=== PATIENT | female | born 1960 | race Caucasian/White ===

== ENCOUNTER 2020-11-22 09:00 | Outpatient (RCR) | payer MEDICAID, SELFPAY ==
--- NOTE | 2020-10-24 09:56 | HP.PTEVAL_ITS ---
Patient's Visit Information RONALD CABALLERO is a 60 year old F referred to Physical Therapy by Dr. Rajeev Arango MD with a diagnosis of L LE weakness. Date of Evaluation: 10/24/20 Physical Therapist: Omar Gibbs, PT, ATC - Visit Plan Frequency: 2-3x /Week Duration: 4-6 Weeks Plan: L LE strengthening, core stab ex's, B LE stretching, balance and proprio, nustep, and HEP - Subjective Pt reports she has had L leg pain and weakness for 4 years. Pt notes she fell in the shower at that time and experienced a sensation in her L hamstring region. Pt reports the pain progressively worsened after that, to the point where she now has trouble with lifting her L LE, and has foot drop. Pt reports she has had MRI's of her L/S, neck, and head and notes there were no other findings other than arthritis throughout. Pt reports she had twins a long time ago and notes she had similar sx's where her L LE would give out. Pt reports her L LE has buckled on her a couple times, but she has caught herself. Pt notes she has fallen in the past, but this was due to her having foot drop and catching her toes. Pt reports stair negotiation is really hard secondary to weakness. 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 Pt reports prolonged standing and walking both increase her pain. 0/10 pain at rest, 10/10 pain at worst (when her back spasms) - Pain L LE Pain Intensity (Out of 10): 0 Pain Intensity Range: 10 - Objective Neuro: L L3 and S1 regions are hyposensitive to light touch. B patellar reflex= 2/3. Palpation: Minor pain over L greater trocanter. No obvious deformity. MMT: R LE is grosslyly 5/5 throughout. L hip flex= 3/5, abd/add= 5/5, Knee flex/ext 4-/5, L ankle DF= 3-/5. ROM: L/S is WFL limits with all ROM. Pepeated movements. CATA and RFIS 10x2 ea had NE. - Goals Goal 1:: Increase L LE strength x 1 grade to aid with stair negotiation Goal Time Frame: 4-6 Weeks Goal 2:: Increase core stability x 1 grade to aid with IADL's Goal Time Frame: 4-6 Weeks Goal 3:: Pt will be able to ambulate greater than 600 feet in order to aid with community ambulation Goal Time Frame: 4-6 Weeks Goal 4:: I with HEP Goal Time Frame: 4-6 Weeks - Rehabilitation Potential Physical Therapy Diagnosis: L LE weakness, difficulty with ambulation, and intermittent LBP secondary to degenerative changes in L/S and core weakness Rehabilitation Potential: Good - Anticipated Interventions Patient/Client Instruction: Educate patient on: Condition, Plan of Care For the Purpose of:: To improve self management Therapeutic Exercise to Include: Strength training, Endurance training, Balance training, Body mechanics, Postural training, Flexibilty training, Dynamic Lumbar Stabilization For the Purpose of:: To decrease pain, To improve muscle performance and motor function, To improve ability of physical actions for home/community/work/leisure Thank you for the opportunity to evaluate your patient. For Medicare and Medicare HMO plans, please review the plan of care and approve it. It will need to be FAXED BACK to us at [phone] for Medicare purposes. For Medicare only, by signing this I certify the plan of care. Please let me know if there are questions or concerns regarding this plan of care. Physician Signature: Date:
--- NOTE | 2020-11-22 09:59 | HP.PTDCSUM ---
It has been my pleasure to treat RONALD CABALLERO referred by Dr. Rajeev Arango MD, with the diagnosis of L LE weakness for a total of 10 visit(s). Discharge Date: Please see the following information for a summary of their discharge status. Subjective: I feel so much better, but my foot drop is still there L LE Pain Intensity (Out of 10): 0 L hip Pain Intensity (Out of 10): 0 % Improvement: 80 Objective/Function: L LE strength now 5/5 with exception to hip flex and ankle DF= 4/5. Pt was able to ambulate over 1000 feet without difficulty. Core is much stronger. Pt is I with HEP. Rx goals achieved Goal 1:: Increase L LE strength x 1 grade to aid with stair negotiation Goal Progress: Goal Met Goal 2:: Increase core stability x 1 grade to aid with IADL's Goal Progress: Goal Met Goal 3:: Pt will be able to ambulate greater than 600 feet in order to aid with community ambulation Goal Progress: Goal Met Goal 4:: I with HEP Goal Progress: Goal Met Plan: Discharge If there are questions or concerns regarding this patient's physical therapy, please feel free to call me at [phone]. Thank you for the referral of this patient. Sincerely, Omar Gibbs, PT, ATC
== END 2020-11-22 19:00 | disposition home or self-care (01) ==
LOC: PT 09:00
PROVIDERS: PCP Family Medicine; Referring Provider Psychiatry & Neurology Neurology; Visit Provider Psychiatry & Neurology Neurology
DX: R29.898 Other symptoms and signs involving the musculoskeletal system (principal); M54.9 Dorsalgia, unspecified
CPT/HCPCS: 97110; 97161; 97164

== ENCOUNTER 2021-01-17 09:54 | Emergency (ER) | payer MEDICAID, SELFPAY ==
[2021-01-17 09:54] VITALS: BP 112/68; PULSE 76; RESP 18; TEMP 36.6; O2SAT 97; BMI 35.6
--- NOTE | 2021-01-17 10:09 | ED.DCSUM_ITS ---
History of Present Illness Chief Complaint: Nausea/Vomiting Informant: Patient Onset: Days Context: Gradual Onset Current Severity: Moderate Maximum Severity: Moderate Narrative: Patient presents secondary to nausea and vomiting. She states she was ill with upper respiratory symptoms and ear pain the first of the month. She was treated with an antibiotic. About a week and a half ago she developed nausea and vomiting, initially only vomiting once every 3 days or so. Episodes become more frequent but now she has vomiting daily. She was prescribed Zofran on the but she states this is not helping her. She denies any significant abdominal pain. No fever. She did start having diarrhea this morning. She denies blood in her vomitus or stool. - Past Medical History (1) Depression Status: Chronic Past Medical History - Allergies and Home Meds Allergies/Adverse Reactions: Allergies metronidazole [From Flagyl] Allergy (Verified 01/17/21 09:58) Vomiting NSAIDS (Non-Steroidal Anti-Inflamma Allergy (Verified 01/17/21 09:58) Nausea Primary Care Physician: Danny Wright MD [Primary Care Provider] - Prior records reviewed: Yes Smoking Status: Light Smoker (<10/day) Review of Systems General: Denies: Chills, Fever Eyes: Denies: Visual changes - bilaterally ENT: Denies: Bilateral ear pain, Rhinorrhea Cardiovascular: Denies: Chest pain Respiratory: Denies: Dyspnea, Cough Gastrointestinal: Reports: Nausea, Vomiting, Diarrhea. Denies: Abdominal pain Genitourinary: Denies: Dysuria Musculoskeletal: Denies: Swelling, Extremity Pain Skin: Denies: Rash Neurological: Denies: Headache Hematologic: Denies: Easy bruising, Easy bleeding Allergy: Denies: Uticaria Physical Exam Vital Signs/Narrative: Vital Signs Temp Pulse Resp BP Pulse Ox 01/17/21 09:54 97.9 F 76 18 112/68 97 Inital Vital Signs reviewed: Yes General: Well nourished, Well developed ENT: Moist mucous membranes Neck: Supple Cardiovascular: Regular rate, Regular rhythm Respiratory: No distress, CTA bilaterally Abdomen: Soft, Nontender, Hypoactive bowel sounds Extremities: Nontender Skin: Normal color Neurological: Alert, Oriented x3 Psychological: Normal affect Diagnostic/Tx/Re-eval Laboratory Results 01/17/21 01/17/21 10:15 10:15 WBC 11.6 H RBC 4.38 Hgb 13.7 Hct 42.0 MCV 95.9 MCH 31.3 MCHC 32.6 RDW Std Deviation 43.8 RDW Coeff of Júnior 12.3 Plt Count 326 MPV 10.0 Immature Gran % (Auto) 0.400 Neut % (Auto) 75.7 H Lymph % (Auto) 13.1 L [place] % (Auto) 9.5 Eos % (Auto) 1.0 Baso % (Auto) 0.3 Absolute Neuts (auto) 8.8 H Absolute Lymphs (auto) 1.52 Nucleated RBC % 0 Sodium 137 Potassium 3.8 Chloride 102 Carbon Dioxide 29.0 Anion Gap 6 BUN 11 Creatinine 1.00 Estim Creat Clear Calc 58.91 Est GFR (MDRD) Af Amer 73 Est GFR (MDRD) Non-Af 61 BUN/Creatinine Ratio 11.0 Glucose 109 H Calcium 8.9 Total Bilirubin 2.50 H Direct Bilirubin 0.50 H AST 20 ALT 57 H Alkaline Phosphatase 109 Total Protein 7.9 Albumin 3.7 Globulin 4.2 Lipase 77 - Medical Decision Making Patient has been on Zofran without improvement of her symptoms. She was given Reglan and Benadryl along with a liter of IV fluids. On repeat evaluation she does feel improved. Blood work is largely unremarkable. With no fever and a benign abdominal exam I do not think CT scan is needed at this time. This was discussed with the patient. She was given return instructions but will be given Reglan to try at home for her symptoms. She will continue to follow bland diet and take probiotic. ED Disposition - Plan for ED Patient: Disposition: Home or Assisted Living Diagnosis: Vomiting Instructions: ED Vomiting (Adult) Prescriptions: Metoclopramide [Reglan] 10 mg PO 4X/DAY PRN #20 tablet PRN Reason: Nausea/Emesis Transmission Status: Pending to [id number] Referrals: Danny Wright MD [Primary Care Provider] - 3-5 Days if not improving
[2021-01-17] MEDS: 0.9% Normal Saline 1,000 ML 1000 ML IV (10:22)
[2021-01-17] MEDS: DiphenhydrAMINE 50 MG/ML Syringe 12.5 MG IV (10:22)
[2021-01-17 10:23] LABS: Absolute Lymphocyte Count 1.52 X10^3/uL (0.83-4.51); Absolute Neutrophil Count 8.8 X10^3/uL (2.0-7.7); Basophil# 0.04 X10^3/uL; Basophil% 0.3 % (0-1); Eosinophil# 0.12 X10^3/uL; Hemoglobin 13.7 g/dL (12.0-15.0); Lymphocyte # 1.52 X10^3/ul (0.83-4.51); Lymphocyte % 13.1 % (19-41); Mean Corp Hgb Conc 32.6 g/dL (32-36); Mean Corpuscular Hgb 31.3 pg (27.0-32.0); Mean Corpuscular Volume 95.9 fL (81-99); Monocyte# 1.11 X10^3/uL; Monocyte% 9.5 % (0-10); NRBC Flagged by Analyzer 0 % (0-5); Neutrophil # 8.79 X10^3/uL (2.7-7.7); Neutrophil % 75.7 % (47-70); Platelet Count 326 K/mm3 (150-450); RBC Distribution Width CV 12.3 % (11.6-14.6); RBC Distribution Width SD 43.8 fl (35.1-43.9); Red Blood Count 4.38 M/mm3 (4.2-5.4); White Blood Count 11.6 K/mm3 (4.4-11.0)
[2021-01-17] MEDS: Metoclopramide 10 MG/2 ML Vial IV (10:24)
[2021-01-17 10:38] LABS: AST(SGOT) 20 U/L (15-37); Alanine Aminotransfer ALT/SGPT 57 U/L (13-56); Albumin, Serum 3.7 g/dL (3.2-5.0); Alkaline Phosphatase 109 U/L (45-117); Anion Gap 6 (5-15); BUN 11 mg/dL (7-18); Calcium,Total 8.9 mg/dL (8.5-10.1); Chloride 102 mmol/L (98-107); EST Glomerular Filtration Rate 61 mL/min (>60); Est Glom Filt Rate - Afr Amer 73 mL/min (>60); Estimated Creatinine Clearance 58.91 ml/min; Globulin 4.2 g/dL (2.2-4.2); Glucose 109 mg/dL (74-106); Lipase 77 U/L (73-393); Potassium 3.8 mmol/L (3.5-5.1); Protein, Total 7.9 g/dL (6.4-8.2); Sodium Level 137 mmol/L (136-145)
[2021-01-17 12:42] VITALS: BP 145/72; PULSE 76; RESP 16; O2SAT 95
== END 2021-01-17 12:43 | disposition home or self-care (01) ==
PROVIDERS: Emergency Provider Emergency Medicine; PCP Family Medicine
DX: R11.2 Nausea with vomiting, unspecified (principal); R19.7 Diarrhea, unspecified; F32.9 Major depressive disorder, single episode, unspecified; Z79.899 Other long term (current) drug therapy; F17.200 Nicotine dependence, unspecified, uncomplicated
CPT/HCPCS: 80048; 80076; 83690; 85025; 96361; 96374; 96375; 99283; J7030

== ENCOUNTER 2022-09-12 09:30 | Outpatient (RCR) | payer MEDICAID, SELFPAY ==
--- NOTE | 2022-07-08 12:20 | HP.PTEVAL_ITS ---
Patient's Visit Information COMFORT CABALLERO is a 62 year old F referred to Physical Therapy by ELISHA Tipton with a diagnosis of MULTIPLE SCLEROSIS. Date of Evaluation: 07/08/22 Physical Therapist: Comfort Thomas, PT, Cert MDT - Visit Plan Frequency: 2-3x /Week Duration: 2 Months Plan: *RIGHT UE INJURY FROM REMOTE FALL*. GAIT AND BALANCE TRAINING INCLUDING STAIRS. GAIT AND BALANCE SAFETY TRAINING WITH WORK RELATED DUTIES. TRENT LE STRENGTHEING. LEFT ANKLE ROM. GAIT TRAINING WITH NEW AFO WHEN ABLE TO GET IT. - Subjective Disability: NO. SELF EMPLOYEED - CLEANING. HASN'T WORKED SINCE LAST MONTH BECAUSE CAN'T CARRY HER STUFF UP AND DOWN THE STEPS. Present symptoms: LEFT FOOT DROP. WOBBLY. Present since: L FOOT DROP HAS GOT WORSE IN THE LAST 4 MONTHS. WORSE SOME DAYS THAN OTHERS. Pain Scale: THE ONLY PAIN I HAVE IS L HIP PAIN - INTERMITTENT PAIN. NEAR CONSTANT L HIP STIFFNESS. WORSE 10/10 - INTERMITTENT. Currently: 0/10. Commenced as a result of: PATIENT RELATES HER L HIP PAIN TO HER GAIT FROM THE MS AND HER FOOT DROP TO THE MS. Worse: WALKING. Better: SITTING. Previous history/Previous treatment: DX'S WITH MS APR 2022 BUT HAS BEEN DEALING WITH L LEG WEAKNESS FOR ABOUT 6 YEARS. Coughing/sneezing/straining: POSITIVE - IT MAKES MY TOES CURL - LEFT ONLY. Gait: PATIENT REPORTS SHE WALKS VERY SLOW TO TRY TO AVOID TRIPPING OVER LEFT TOES. NO AD'S. USES HANDRAILS ON STEPS. Bowel or Bladder Dysfunction: NO. Accidents: [place] [employer] 2016 - THIS IS WHEN L LEG WEAKNESS WAS NOTICED AND L LEG IS WHAT CAUSED THE FALL. HAS FALLEN QUITE A FEW TIMES SINCE THEN. INJURED RIGHT ELBOW IN A FALL AND CAN'T STRAIGHTEN IT ALL THE WAY OUT NOW. NO RECENT MAJOR FALLS THOUGH. Unexplained weight loss: NO. Imaging: RECENT SPINAL TAP. RECENT BRAIN AND NEXK MRI'S TOO. PMH/Recent major surgery: UNREMA RKABLE. OTHER: PATIENT REPORTS SHE HAS AN ORDER FOR AN AFO. THIS PT ENCOURAGED HER TO ASK HER INSURANCE COMPANY ABOUT COVERAGE BEFORE PURCHASING/HAVING IT MADE. - Objective Sitting/Standing Posture: POOR. FH. RSH'S. NO LUMBAR LATERAL SHIFT. Other Observations: PATIENT IS ABLE TO TRANSFER INDEP'LY FROM SIT TO STAND WITHOUT UE ASSIST. INDEP GAIT INTO PT WITH DECREASED CADANCE LIMPING ON LEFT LE. ROM deficit: TRENT LE'S WFL EXCEPT L ANKLE DORSIFLEXION DECREASED BY APPROX 75%. Motor deficit: RIGHT LE 5/5. LEFT LE: HIP 3-/5, KNEE 4-/5, ANKLE 2-/5. OTHER: SEE TUG AND 30 SEC STS TESTS BELOW. Core strength: POOR. OTHER: PATIENT IS VERY PLEASANT AND COOPERATIVE TO WORK WITH BUT TEARFUL OFF AND ON DURING SESSION THAT SHE RELATES TO HER DIAGNOSIS. - Balance/Special Test Scores Lower Extremity Functional Score: 33 TUG Test Time Seconds: 15.94 30 Second Chair Rise Test Seconds: 8 - Goals Goal 1:: INDEP AND SAFE GAIT ON LEVEL SURFACES AND UP AND DOWN STEPS WITH LEAST ASSISTIVE DEVICE. Goal Time Frame: 6-8 Weeks Goal 2:: PATIENT WILL COMPLETE 15 STANDS IN 30 SECS TO DEMONSTRATE IMPROVED FUNCTIONAL STRENGTH Goal Time Frame: 4-6 Weeks Goal 3:: PATIENT WILL COMPLETE TUG IN < 10 SECS TO DEMONSTRATE IMPROVED GAIT STABILITY Goal Time Frame: 6-8 Weeks Goal 4:: PATIENT WILL BE INDEP WITH A HEP FOR CONTINUED IMPROVEMENT ONCE FORMAL PHYSICAL THERAPY CONCLUDES. Goal Time Frame: 6-8 Weeks - Anticipated Interventions Patient/Client Instruction: Educate patient on: Condition, Plan of Care, Risk Factors For the Purpose of:: To improve self management Therapeutic Exercise to Include: Strength training, Flexibilty training, Gait and locomotor training, Neuromotor development, In an aquatic setting, Dynamic Lumbar Stabilization For the Purpose of:: To improve muscle performance and motor function, To improve ability to perform ADL's, To improve ability of physical actions for home/community/work/leisure, To improve gait and locomotor functions, To decrease soft tissue restriction Thank you for the opportunity to evaluate your patient. For Medicare and Medicare HMO plans, please review the plan of care and approve it. It will need to be FAXED BACK to us at [phone] for Medicare purposes. For Medicare only, by signing this I certify the plan of care. Please let me know if there are questions or concerns regarding this plan of care. Physician Signature: Date:
--- NOTE | 2022-12-26 14:41 | HP.PT.NRP ---
COMFORT CABALLERO was seen in my office for initial evaluation on 07/08/22. The following Plan of Care was established for this patient: Initial Frequency: 2-3x /Week Initial Duration: 2 Months Patient/Client Instruction: Educate patient on: Condition, Plan of Care, Risk Factors For the Purpose of:: To improve self management Therapeutic Exercise to Include: Strength training, Flexibilty training, Gait and locomotor training, Neuromotor development, In an aquatic setting, Dynamic Lumbar Stabilization For the Purpose of:: To improve muscle performance and motor function, To improve ability to perform ADL's, To improve ability of physical actions for home/community/work/leisure, To improve gait and locomotor functions, To decrease soft tissue restriction This patient was last seen in our office 09/12/22. Pertinent comments regarding their Physical therapy will appear below: PATIENT WAS SEEN TODAY FOR RE-ASSESSMENT OF PROGRESS TOWARD THE SET PT GOALS AND THE NEED FOR FURTHER PHYSICAL THERAPY VS READINESS FOR DISCHARGE. UPON EXAM TODAY: At this point I will be discontinuing this patient from physical therapy. I would be happy to see this patient again in the future if found appropriate by the physician. Thank you! Comfort Thomas, PT, Cert MDT Balance/Gait/Functional tests - Balance/Special Test Scores Lower Extremity Functional Score: 36 TUG Test Time Seconds: 12.56 30 Second Chair Rise Test Seconds: 11
--- NOTE | 2022-12-26 14:50 | HP.PT.NRP ---
COMFORT CABALLERO was seen in my office for initial evaluation on 07/08/22. The following Plan of Care was established for this patient: Initial Frequency: 2-3x /Week Initial Duration: 2 Months Patient/Client Instruction: Educate patient on: Condition, Plan of Care, Risk Factors For the Purpose of:: To improve self management Therapeutic Exercise to Include: Strength training, Flexibilty training, Gait and locomotor training, Neuromotor development, In an aquatic setting, Dynamic Lumbar Stabilization For the Purpose of:: To improve muscle performance and motor function, To improve ability to perform ADL's, To improve ability of physical actions for home/community/work/leisure, To improve gait and locomotor functions, To decrease soft tissue restriction This patient was last seen in our office 09/12/22. Pertinent comments regarding their Physical therapy will appear below: This patient has not returned to Physical Therapy and is appropriate to return to MD for further follow-up as needed. At this point I will be discontinuing this patient from physical therapy. I would be happy to see this patient again in the future if found appropriate by the physician. Thank you! Comfort Thomas, PT, Cert MDT Balance/Gait/Functional tests - Balance/Special Test Scores Lower Extremity Functional Score: 36 TUG Test Time Seconds: 12.56 30 Second Chair Rise Test Seconds: 11
== END 2022-09-12 19:00 | disposition home or self-care (01) ==
LOC: PT 09:30
PROVIDERS: PCP Family Medicine; Referring Provider Physician Assistant; Visit Provider Physician Assistant
DX: G35 Multiple sclerosis (principal)
CPT/HCPCS: 97110; 97162; 97164

== ENCOUNTER 2023-02-03 09:57 | Emergency (ER) | payer MEDICAID, SELFPAY ==
[2023-02-03 09:58] VITALS: BP 210/117; PULSE 81; RESP 18; TEMP 36.7; O2SAT 98; BMI 40.9
--- NOTE | 2023-02-03 10:57 | RAD_ITS ---
STUDY: X-RAY - LEFT KNEE REASON FOR EXAM: Female, 63 years old. Injury/Pain TECHNIQUE: 2 view(s) of the knee. COMPARISON: None. FINDINGS: Normal visualized distal femur. Normal visualized proximal tibia and fibula. Normal proximal tibiofibular articulation. There is no demonstrated fracture. There is mild degenerative arthrosis of the medial femorotibial compartment. Normal lateral femorotibial compartment. There is mild degenerative arthrosis of the patellofemoral articulation. There is a soft tissue prominence in the suprapatellar region suggesting a small volume joint effusion. The soft tissue structures are unremarkable. RAD/Knee 1 or 2 Views IMPRESSION: Degenerative arthrosis. Small joint effusion. Electronically Signed: Jamey Santos MD at 12:15 EDT ,
--- NOTE | 2023-02-03 10:57 | RAD_ITS ---
STUDY: X-RAY - LEFT FOOT CLINICAL: Female, 63 years old. Injury/Pain TECHNIQUE: 3 view(s) of the foot. COMPARISON: Left ankle x-ray dated February 03, 2023. FINDINGS: Normal talus, calcaneus, and tarsal bones. Normal visualized subtalar, talonavicular, calcaneocuboid, tarsal and tarsometatarsal articulations. Normal metatarsi. Normal metatarsophalangeal joint of the great toe. Normal tibial and fibular sesamoid bones. Normal interphalangeal joint of the great toe. Normal phalanges of the great toe. Normal second through fifth metatarsophalangeal joints. Normal interphalangeal joints and phalanges of the lesser toes. Mild soft tissue swelling is present over the dorsum of the foot and around the ankle related to the lateral malleolus acute fractures.. There is no demonstrated fractures in the foot. RAD/Foot min 3 Views IMPRESSION: 1. Mild soft tissue swelling over the dorsum of the foot. No fractures of the foot Electronically Signed: Jamey Santos MD at 12:18 EDT ,
[2023-02-03] MEDS: Morphine 4 MG/ML Syringe IM ×2 (11:12→13:36)
--- NOTE | 2023-02-03 11:30 | RAD_ITS ---
STUDY: X-RAY - LEFT ANKLE REASON FOR EXAM: Female, 63 years old. Injury/Pain TECHNIQUE: 3 view(s) of the ankle. COMPARISON: None. FINDINGS: An acute spiral fracture of the distal one third fibular shaft is present with mild cortical offset. There is also 2 additional oblique fractures of the distal one third fibula and origin of the lateral malleolus, also with mild displacement. The adjacent soft tissues are mildly to moderately swollen. There is also mild lateral subluxation of the talar dome in relation to the tibial plafond resulting and mild widening of the medial clear space. No additional fractures are seen however. Normal visualized distal tibia. Normal medial and lateral malleoli. Normal tibiotalar articulation and ankle mortise. Normal visualized talus and calcaneus. The visualized subtalar, talonavicular, calcaneocuboid and tarsal articulations are normal. RAD/Ankle min 3 Views IMPRESSION: 1. Acute spiral fractures of the distal fibula and lateral malleolus 2. Mild lateral subluxation of the talus in relation to the tibial plafond Electronically Signed: Jamey Santos MD at 12:17 EDT ,
--- NOTE | 2023-02-03 12:21 | EDS_ITS ---
HPI History of Present Illness HPI Narrative: Patient presents with left lower leg injury that occurred yesterday. Patient states she tripped and fell yesterday. Patient states she has a history of MS and has some occasional paresthesias in her legs. Patient states she fell onto her right foot and ankle. Patient states her knee was twisted under her as well. Patient denies any head injury or loss of consciousness. Patient states her pain is worse with movement. Patient states it is better with rest. Patient denies any new paresthesias or weakness. Patient denies any other injuries. Chief Complaint: Fall Informant: patient Occured/Mechanism Mechanism/Context: Yes fall Onset/Context/Timing Onset: Yesterday Context: Sudden Onset Timing: Continuous Quality of Pain: Sharp and Aching Location: Left knee, left ankle, left foot Worsened by: Movement Relieved by: Rest Associated Symptoms Associated Symptoms: Negative for Parasthesia, Weakness or Loss of Funtion [facility] History (Updated 02/03/23 @ 13:[address] Nimesh Bull DO) Multiple sclerosis Home Medications citalopram 20 mg tablet 20 mg PO DAILY 01/17/21 [History Last Taken Unknown] ondansetron 4 mg disintegrating tablet 4 mg PO Q8H PRN Nausea 01/17/21 [History Last Taken Unknown] hydrocodone-acetaminophen 5-325mg 5mg-325mg 1 tab PO Q6H PRN PRN Pain 3 days #10 TABLETS 02/03/23 [Rx Last Taken Unknown] Allergy/AdvReac Type Severity Reaction Status Date / Time metronidazole [From Flagyl] Allergy Vomiting Verified 01/17/21 09:58 NSAIDS (Non-Steroidal Allergy Nausea Verified 01/17/21 09:58 Anti-Inflamma Surgical History no surgical history no surgical history Social History Smoking Status: Current every day smoker tobacco type: cigarettes ROS ROS ED Constitutional Constitutional ED: Denies chills or fever(s) Eyes Eyes: Denies blurry vision or change in vision ENT ENT ED: Denies rhinorrhea or sore throat Cardiovascular Cardiovascular: Denies chest pain or palpitations Respiratory/Chest Respiratory/Chest: Denies cough or dyspnea Gastrointestinal Gastrointestinal: Reports nausea; Denies vomiting Genitourinary Genitourinary ED: Denies dysuria or hematuria Musculoskeletal Musculoskeletal: Denies back pain or neck pain Integumentary Denies abscess or rash Neurologic Neurologic: Denies headache(s) or weakness Allergic/Immunologic Allergic/Immunologic ED: Denies mouth swelling or urticaria EXAM Physical Exam Const Vital Signs: 02/03/23 09:58 02/03/23 12:40 Temperature 98.1 F Temperature Source Temporal Pulse Rate 81 80 Respiratory Rate 18 18 Blood Pressure 210/117 H 190/88 H Blood Pressure Mean 148 122 Pulse Ox 98 99 Oxygen Delivery Method Room Air Room Air Positive well nourished, well developed and obese General Appearance ED: well developed Nutritional Appearance: obese HEENT Reports moist mucous membranes Neck full ROM and supple Extremity Extremity Narrative: There is tenderness, edema, and ecchymosis over the left foot and left ankle. There is mild tenderness over the medial aspect of the left knee. There is no obvious deformity noted. Range of motion was limited in all motions of the left foot and ankle secondary to pain. Range of motion was slightly limited in complete flexion and complete extension of the left knee. There is no ligamento us laxity noted in the left knee. Varus and valgus stress test were negative. Zita's test was negative. There is no tenderness over the proximal fibula. There is no tenderness over the fifth metatarsal. Pedal pulses are equal bilaterally. Sensation was intact to light touch in all digits. Capillary refill was less than 2 seconds in all digits. Neuro oriented x3, CN's II-XII intact bilaterally, moves all extremities and no sensory deficits noted Sensorium / Orientation: alert Motor Exam: strength 5/5 throughout Psych mental status grossly normal MDM MDM MDM Narrative Medical decision making narrative: Differential diagnosis includes left ankle fracture, left foot fracture, left knee fracture, left knee sprain, contusion, left ankle sprain, and left foot sprain. X-rays of the left foot, left ankle, and left knee will be obtained to assess for fracture. Radiography Diagnostic Testing: Clinical Impression(s) from Imaging Studies Foot X-Ray 02/03/23 10:57 IMPRESSION: 1. Mild soft tissue swelling over the dorsum of the foot. No fractures of the foot Electronically Signed: Jamey Santos MD at 12:18 EDT Reading Location ID and State: [facility] / [place] , Service support , Knee X-Ray 02/03/23 10:57 IMPRESSION: Degenerative arthrosis. Small joint effusion. Electronically Signed: Jamey Santos MD at 12:15 EDT , Ankle X-Ray 02/03/23 11:30 IMPRESSION: 1. Acute spiral fractures of the distal fibula and lateral malleolus 2. Mild lateral subluxation of the talus in relation to the tibial plafond Electronically Signed: Jamey Santos MD at 12:17 EDT , X-rays of the left knee were obtained. There are 2 views. On my independent interpretation, there is no acute fracture or dislocation. There is no effusion noted. Radiologist also interpreted the x-rays and agrees. X-rays of the left foot were obtained. There are 3 views. On my independent interpretation, there is no acute fracture. There is no dislocation. There is some mild soft tissue swelling. Radiologist also interpreted the x-rays and agrees. X-rays of the left ankle were obtained. There are 3 views. On my independent interpretation, there is a nondisplaced spiral fracture of the distal fibula and lateral malleolus. There is mild lateral subluxation of the talus in relation to the tibia. There is some mild soft tissue swelling. Radiologist also interpreted the x-rays and agrees. Treatment and Re-Evaluation Narrative: Patient was given a dose of morphine initially. Patient was given a repeat dose of morphine. Patient was placed in a well-padded custom made posterior and sugar-tong splint of the left lower leg. Patient tolerated the procedure well. Neurovascular exam was intact before and after the procedure. Case was discussed with Dr. Arce from orthopedics. He will follow-up with the patient as an outpatient. Patient was given a prescription for [place]. Patient states she has a walker at home. Patient was instructed remain nonweightbearing until she follows up with orthopedics. Patient understands and is agreeable with the plan. All questions were answered. Procedures Lower Extremity Splints Lower Extremity Splint: Orthoglass Splint Fabrication: Fabricated Location: Left Discharge Plan Triage Chief Complaint: Fall ED Provider: Nimesh Bull Dx/Rx/DC Orders Clinical Impression: Closed fracture of distal end of left fibula, Multiple sclerosis Instructions: ED Fracture, Lower Extremity Prescriptions: New hydrocodone-acetaminophen [hydrocodone-acetaminophen] 5-325 mg tablet 1 tab PO Q6H PRN PRN (Reason: Pain) 3 Days Qty: 10 0RF No Action citalopram 20 MG tablet 20 mg PO DAILY ondansetron 4 MG tablet,disintegrating 4 mg PO Q8H PRN (Reason: Nausea) Stand Alone Forms: ED Work / School Excuse Primary Care Provider: Danny Wright Referrals: Danny Wright MD [Primary Care Provider] - 3-5 Days [place] Arce DO [Med Staff - Active Staff] - 3-5 Days Disposition Disposition: Home, Self Care
[2023-02-03 12:40] VITALS: BP 190/88; PULSE 80; RESP 18; O2SAT 99
== END 2023-02-03 14:32 | disposition home or self-care (01) ==
PROVIDERS: Emergency Provider Emergency Medicine; PCP Family Medicine; Visit Provider Emergency Medicine
DX: S82.832A Other fracture of upper and lower end of left fibula, initial encounter for closed fracture (principal); G35 Multiple sclerosis; F17.210 Nicotine dependence, cigarettes, uncomplicated; W19.XXXA Unspecified fall, initial encounter
CPT/HCPCS: 29505; 73560; 73610; 73630; 96372; 99284

== ENCOUNTER → 2024-04-28 | Outpatient (CLI) | payer MEDICAID, SELFPAY ==
--- NOTE | 2024-04-28 12:20 | NEURO_ITS ---
NCS and/or EMG Patient Report Ordering Doctor: Danny Wright DATE OF SERVICE: 04/28/24 Comfort presents with right upper extremity numbness, primarily in digit 5. She reports intermittent right elbow pain. Electrodiagnostic findings: Right median motor nerve demonstrates normal distal latency, amplitude and conduction velocity. Right ulnar motor response, including conduction velocity across the elbow is within normal limits. Sensory responses are normal. Normal right median and ulnar F?waves. Needle EMG t esting was performed in the right upper limb. All muscles tested showed no evidence of denervation with normal motor unit action potentials. Electrodiagnostic impression: This is a normal electrodiagnostic study in the right upper limb. There is no electrodiagnostic evidence for peripheral neuropathy, including carpal tunnel or cubital tunnel syndrome. There is no electrodiagnostic evidence for cervical radiculopathy Multi [facility] Codes Neurology Neurology Interp Codes: 03338-92 Musc test done w/n test comp (interp) and 27919-96 Nrv cndj test 7-8 studies (interp)
== END | disposition home or self-care (01) ==
PROVIDERS: PCP Family Medicine; Referring Provider Family Medicine; Visit Provider Family Medicine
DX: R20.0 Anesthesia of skin (principal); R20.2 Paresthesia of skin
CPT/HCPCS: 95886; 95910

== ENCOUNTER 2024-11-10 15:33 | Emergency (ER) | payer MEDICAID, SELFPAY ==
[2024-11-10 15:34] VITALS: BP 170/93; PULSE 81; RESP 20; TEMP 35.7; O2SAT 94; BMI 42.1
[2024-11-10 16:31] VITALS: O2SAT 94
--- NOTE | 2024-11-10 17:30 | CT_ITS ---
PROCEDURE: CTA CHEST W/WO CONTRAST REASON FOR EXAM: 64-year-old female, shortness of breath and cough x1 week, and elevated troponin. History of multiple sclerosis. TECHNIQUE: CTA imaging of the chest with intravenous contrast. 3D reconstructions. CONTRAST: Administered. COMPARISON: None. FINDINGS: Hardware: None. Lymph nodes: No mediastinal hilar or axillary lymphadenopathy. Heart: Normal heart size. No pericardial effusion. Minimal coronary artery calcifications. RV/LV Diameter Ratio: N/A Thoracic Aorta: No thoracic aortic aneurysm or dissection. Mild calcific plaque of the aortic arch and its branch vessels. Pulmonary Vessels: No evidence of acute pulmonary emboli through the major subsegmental branches. Most Proximal Level of Embolus (if embolus present): N/A Lungs and Airways: The central airways are patent. Mild scattered atelectasis and areas of scarring. No focal consolidation, pleural effusion or pneumothorax. Mild linear scarring within the right middle lobe. Upper Abdomen: Diffuse hepatic steatosis with small hepatic cyst. Left adrenal nodule measuring 2.9 cm. Bones: Bilateral glenohumeral joint arthrosis. Thoracic spondylosis. CT/CTA Chest W/WO Contrast IMPRESSION: 1. No evidence of acute pulmonary embolism. 2. Small left adrenal nodule. If patient has a history of cancer, recommend no nemergent CT abdomen (adrenal protocol) for further evaluation. If no history of cancer, [address] abdomen (adrenal protoc ol) follow-up is recommended. 3. Diffuse hepatic steatosis. One or more dose reduction techniques were used (e.g., Automated exposure contr ol, adjustment of the mA and/or kV according to patient size, use of iterative reconstruction technique). Reading Location: [id number]
--- NOTE | 2024-11-10 17:31 | ED.VIS.DYS ---
HPI History of Present Illness Chief Complaint: Shortness of Breath Informant: patient and spouse/S.O. Narrative Narrative: 64-year-old female presenting to the emergency room for the evaluation of dyspnea. Patient states that she has a history of chronic bronchitis. She states for the past 2 weeks and more specifically over the past 10 days she has had an increase in shortness of breath particularly with exertion. She went to see her doctor for a checkup where they checked blood work. She was noted to have an elevated D-dimer. Her creatinine was 0.72 with a GFR 95. She also had an EKG. She states that she had a chest x-ray performed today but does not know the results. She notes no change in her cough. She notes a 20 pound weight gain over the past 6 months. No reported fever. No DVT PE history. She does have history of multiple sclerosis and states that it is never affected her respiratory system. [facility] Medical History Multiple sclerosis Home Medications ?Medication ?Instructions ?Recorded ?Last Taken ?Type citalopram 20 mg tablet 20 mg PO DAILY 01/17/21 Unknown History ondansetron 4 mg disintegrating 4 mg PO Q8H PRN Nausea 01/17/21 Unknown History tablet hydrocodone-acetaminophen 5-325mg 1 tab PO Q6H PRN PRN Pain 3 days 02/03/23 Unknown Rx 5mg-325mg #10 TABLETS prednisone 20 mg tablet 60 mg (3 x 20 mg) PO DAILY #15 11/10/24 Unknown Rx TABLETS Allergy/AdvReac Type Severity Reaction Status Date / Time aspirin Allergy Severe Anaphylaxis Verified 11/10/24 15:34 metronidazole (From Flagyl) Allergy Vomiting Verified 11/10/24 15:34 NSAIDS (Non-Steroidal Allergy Nausea Verified 11/10/24 15:34 Anti-Inflamma Social History household members: spouse housing: house Smoking Status: Current every day smoker tobacco type: cigarettes ROS ROS ED Constitutional Constitutional ED: Denies chills, fever(s) or weight loss Eyes Eyes: Denies change in vision or diplopia ENT ENT ED: Denies ear pain, rhinorrhea or sore throat Cardiovascular Cardiovascular: Denies chest pain, orthopnea, palpitations or racing heartbeat Respiratory/Chest Respiratory/Chest: Reports cough, dyspnea and dyspnea on exertion; Denies orthopnea Gastrointestinal Gastrointestinal: Denies abdominal pain, diarrhea, nausea or vomiting Genitourinary Genitourinary ED: Denies dysuria, hematuria or urinary frequency Musculoskeletal Musculoskeletal: Denies arthralgias or myalgias Integumentary Denies abscess or rash Neurologic Neurologic: Denies headache(s) or weakness Psychiatric Psychiatric: Denies anxiety, depression, suicidal ideation or suicidal thoughts Endocrine Endocrinology: Denies polydipsia, polyphagia or polyuria Allergic/Immunologic Allergic/Immunologic ED: Denies mouth swelling, tongue swelling or urticaria EXAM Physical Exam Const Vital Signs: 11/10/24 15:34 11/10/24 16:31 11/10/24 17:34 Temperature 96.2 F L Temperature Source Temporal Pulse Rate 81 87 Respiratory Rate 20 H Respiratory Effort Non-Labored Short of Breath Respiratory Depth Normal Respiratory Pattern Normal Blood Pressure 170/93 H 132/89 H Blood Pressure Mean 118 103 Pulse Ox 94 94 Oxygen Delivery Method Room Air Room Air Positive well nourished, well developed and obese General Appearance ED: well developed and NAD Nutritional Appearance: obese HEENT Reports normocephalic, head/scalp atraumatic and moist mucous membranes Eyes PERRL and EOMs intact bilaterally Neck no lymphadenopathy, supple and no JVD Resp normal respiratory effort and clear to auscultation bilaterally Cardio regular rate, regular rhythm and no murmurs GI normal to inspection, nondistended, normoactive bowel sounds and non-tender Palpation: soft Back/Spine no CVA tenderness and normal ROM Extremity General Extremety ED: Yes edema General Extremity: edema bilateral lower extremity Details: mild Neuro oriented x3 and CN's II-XII intact bilaterally Sensorium / Orientation: alert Motor Exam: strength 5/5 throughout Psych mental status grossly normal Mood & Affect: Negative for depressed or tearful Skin no rashes or lesions noted and no wounds MDM MDM MDM Narrative Medical decision making narrative: Differential diagnosis would include but not limited to pulmonary embolism congestive heart failure chronic bronchitis exacerbation multiple sclerosis exacerbation/involvement of respiratory muscles acute coronary syndrome coronary artery disease left ventricular right ventricular dysfunction I reviewed the patient's EKG and her blood work from her doctor's office. Her troponin is normal her BNP is 62.8. A CTA of the chest does not demonstrate any pneumonia pleural effusion no evidence of pulmonary edema pneumothorax or pulmonary embolus I spoke with the patient regarding the above results. I think it is reasonable to trial her on a short course of prednisone. She would like to wait to take it in the morning which I think is reasonable because of her restless leg at night. She has instructions from her doctor already to schedule an outpatient echocardiogram. She understands return instructions if she is worsening or has any concerns. History & Record Review Discussion w/independent historian: Patient and Significant other Lab Data Attestation: I reviewed the patient's lab results. Labs: Laboratory Results - last 24 hr 11/10/24 16:34 Troponin I High Sens 7 B-Natriuretic Peptide 62.8 Radiography Diagnostic Testing: Clinical Impression(s) from Imaging Studies Chest CTA 11/10/24 17:30 IMPRESSION: 1. No evidence of acute pulmonary embolism. 2. Small left adrenal nodule. If patient has a history of cancer, recommend nonemergent CT abdomen (adrenal protocol) for further evaluation. If no history of cancer, [address] abdomen (adrenal protocol) follow-up is recommended. 3. Diffuse hepatic steatosis. One or more dose reduction techniques were used (e.g., Automated exposure control, adjustment of the mA and/or kV according to patient size, use of iterative reconstruction technique). Reading Location: [facility] Discharge Plan Triage Chief Complaint: Shortness of Breath ED Provider: Dank Escalera Dx/Rx/DC Orders Clinical Impression: Chronic bronchitis, Multiple sclerosis, Acute dyspnea Instructions: ED Dyspnea Prescriptions: New prednisone 20 mg tablet 60 mg PO DAILY Qty: 15 0RF No Action citalopram 20 MG tablet 20 mg PO DAILY ondansetron 4 MG tablet,disintegrating 4 mg PO Q8H PRN (Reason: Nausea) hydrocodone-acetaminophen [hydrocodone-acetaminophen] 5-325 mg tablet 1 tab PO Q6H PRN PRN (Reason: Pain) 3 Days Qty: 10 0RF Primary Care Provider: Danny Wright Referrals: Danny Wright MD [Primary Care Provider] - Activity Restrictions/Additional Instructions: Please work with your doctor to schedule the echocardiogram of your heart. We are going to try a short course of steroids to see if that improves your breathing. Please follow-up closely with your doctor return if you have any concerns or worsening Print Language: Trinidadian Disposition Disposition: Home, Self Care
[2024-11-10 17:34] VITALS: BP 132/89; PULSE 87; O2SAT 94
[2024-11-10 18:26] LABS: Troponin-I HS 7 pg/mL (3.0-54.0)
[2024-11-10 18:29] LABS: BNP,B-Type NATRIURETIC PEPTIDE 62.8 pg/mL (0-100)
[2024-11-10 19:00] VITALS: BP 138/89; PULSE 78; O2SAT 96
[2024-11-10 19:04] VITALS: BP 138/89; PULSE 78; RESP 18; TEMP 36.8; O2SAT 96
== END 2024-11-10 19:09 | disposition home or self-care (01) ==
PROVIDERS: Emergency Provider Emergency Medicine; PCP Family Medicine; Visit Provider Emergency Medicine
DX: J42 Unspecified chronic bronchitis (principal); G35 Multiple sclerosis; F17.210 Nicotine dependence, cigarettes, uncomplicated; Z79.899 Other long term (current) drug therapy
CPT/HCPCS: 71275; 83880; 84484; 99283; Q9967; A4216